=== PATIENT | male | born 1945 | race African-American/Black ===

== ENCOUNTER 2017-10-24 15:27 | Emergency (ER) | payer OTHER ==
[~2017-10-24] VITALS: Ht 182.9 cm; Wt 78.9 kg
--- NOTE | ~2017-10-24 | EKG ---
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: Elvis ROSEN : 1945 Requested By: Phoebe Gee Order Number: [id number] MD: Anthony Qureshi Measurements Intervals [place] Rate: 63 P: -10 ME: 165 QRS: -19 QRSD: 118 T: 98 QT: 493 QTc: 505 Interpretive Statements Sinus rhythm Probable left atrial enlargement Left ventricular hypertrophy Nonspecific T abnrm, anterolateral leads Prolonged QT interval Compared to ECG 03/04/2016 12:13:10 Prolonged QT interval now present Lateral T wave abnormality is less pronounced Electronically Signed On 10-24-2017 17:38:39 MIME ARTIST by Anthony Qureshi [email or web address] <ELECTRONICALLY SIGNED> By: Anthony Qureshi MD, [facility] 10/24/17 1738 [id number] 1556 Anthony Qureshi MD, [facility] /EPI
[~2017-10-24 15:27] MED LIST: ASPIR 8181 MG PO; ASPIRIN81 M2 PO; ATORVASTATIN CA40 MG PO; BACTRIM DS TAB1 EACH PO; BYSTOLIC 5 MG5 M1 PO; BYSTOLIC20 MG PO; CARDIZEM CD180 MG PO; CARDIZEM CD240 MG PO; FELODIPINE 5 MG5 M1 PO; HUMALOG MI100 UNIT/6 SQ; HUMULIN N100 UNIT/1 SUBQ; IRON325 PO; JANUVIA 50 MG T50 M1 PO; LASIX 80 MG TAB80 MG PO; LISINOPRIL10 MG PO; MEDROLDOSEPACK PO; PRAVACHOL40 MG PO; PREDNISONE 10 M10 MG; PRINIVIL20 MG PO; RENO CAPS SOFTGE1 MG PO; RENVELA800 MG PO; TRIAMCINOLONE 080 G3 TOP; ULORIC40 MG PO
[2017-10-24 15:58] LABS: INR 1.1; PROTIME 11.1 Seconds (9.3-11.4)
[2017-10-24 16:59] VITALS: BP 189/76
== END 2017-10-24 16:58 | disposition short-term general hospital (02) ==
LOC: ER 15:27
PROVIDERS: Physician Assistant
DX: I62.00 Nontraumatic subdural hemorrhage, unspecified (principal); R41.82 Altered mental status, unspecified; D64.9 Anemia, unspecified; I12.0 Hypertensive chronic kidney disease with stage 5 chronic kidney disease or end stage renal disease; E11.22 Type 2 diabetes mellitus with diabetic chronic kidney disease; N18.6 End stage renal disease; Z99.2 Dependence on renal dialysis; E87.6 Hypokalemia; I21.4 Non-ST elevation (NSTEMI) myocardial infarction; I13.2 Hypertensive heart and chronic kidney disease with heart failure and with stage 5 chronic kidney disease, or end stage renal disease; I50.9 Heart failure, unspecified; E78.00 Pure hypercholesterolemia, unspecified